=== PATIENT | male | born 1940 | race Caucasian/White ===

== ENCOUNTER 2016-08-22 11:20 | Inpatient (IN) | payer MEDICARE ==
[2016-08-22] VITALS (7 sets, daily range): BP systolic 128–151; BP diastolic 63–89; PULSE 59–78; RESP 17–18; TEMP 98; O2SAT 92–99
[~2016-08-22] VITALS: Ht 160 cm; Wt 52.8 kg
[~2016-08-22 11:20] MED LIST: ALBU1AER INH; BACT800T5 PO; FLON0.053; GABA100C4 PO; SYMB160A INH; XANA0.5T PO
[2016-08-22] MEDS ORDERED: SODIUM CHLORIDE 0.9% FLUSH 5 ML FLUSH IVF PRN (11:45)
[2016-08-22 11:58] LABS: BLOOD GAS BASE EXCESS -1.1 mmol/L (-2-2); BLOOD GAS CARBOXYHEMOGLOBIN 1.8 % (0-4); BLOOD GAS HCO3 23 mmol/L (22-26); BLOOD GAS O2 HGB SATURATION 93 % (90-100); BLOOD GAS OXYGEN CONTENT 15.3 Vol % (12.0-20.0); BLOOD GAS PCO2 38 mmHg (38-42); BLOOD GAS PO2 82 mmHG (61-120); BLOOD GAS TOTAL HGB 11.7 G/DL (12.0-16.0); CRITICAL VALUE NO; FIO2 21 %; OXYGEN DEVICE ROOM AIR; TEMP CORR TO 98.6
[2016-08-22 11:59] LABS: DRAW SITE RT RADIAL; NUMBER OF ARTERIAL PUNCTURES 1; STAT YES
--- NOTE | 2016-08-22 12:04 | PD ---
HPI Chief Complaint: Psychiatric Symptoms Time Seen by Provider: 11:38 Travel History International Travel<30 days: No Contact w/Intl Traveler<30days: No Traveled to known affect area: No History of Present Illness HPI 76-year-old male with PMH of BPH and chronic back pain presents to the ED under [facility] via EMS for evaluation after being found with a hose from his car tailpipe into the trunk of his car. It is unknown how long he was in the car before being found. Patient also endorses taking 6 and 10 Xanax, unknown strength today. Patient states that he has been unable to sleep and this is the reason why he attempted to end his life. He states that he was taking "a generic sleeping pill" prescribed by his doctor at [place]. He states that this medication was "alprazolam." On presentation he denies headache, dizziness, vision changes, chest pain, palpitations, shortness of breath, cough, abdominal pain, nausea, vomiting, weakness of the extremities. He denies chronic health problems, takes no daily medications. NKDA. PFSH Past Medical History Diminished Hearing: No Musculoskeletal: Yes (MULTIPLE VERTEBRAL FRACTURES) Immunizations Current: No Tetanus Vaccination: Unknown Influenza Vaccination: No Past Surgical History Genitourinary Surgery: Yes (ENLARGED PROSTATE) Social History Alcohol Use: No Tobacco Use: No Substance Use: No Allergies-Medications (Allergen,Severity, Reaction): Coded Allergies: No Known Allergies (Verified , 05/01/16) Reported Meds & Prescriptions Reported Meds & Active Scripts Active Gabapentin 100 Mg Cap 100 Mg PO Q8HR 10 Days Bactrim Ds1 Tab 1 Tab Tab 1 Tab PO BID 7 Days Reported Z.0.albuterol8.5hfa 8.5 Gm Aero 0 INH UNKNOWN DOSE Z.0.flonase0.05 % 0.05 % Naspr 1 Spr NA DAILY 1 SPRAY EACH NOSTRIL Z.0.symbicort 160/4. 160 Mcg/4.5 Mcg Aer 2 Puff INH BID * SHAKE WELL BEFORE USE * Z.0.xanax 0.5 Mg T0. 0.5 Mg Tab 0.5 Mg PO HSPRN Review of Systems Except as stated in HPI: all other systems reviewed are Neg Physical Exam Narrative GENERAL: Well-nourished, well-developed, somewhat altered, but alert white male , oriented 5 in no acute distress., SKIN: Warm and dry. HEAD: Normocephalic. EYES: No scleral icterus. No injection or drainage. Pupils 2-3 mm and reactive bilaterally. NECK: Supple, trachea midline. No JVD or lymphadenopathy. CARDIOVASCULAR: Regular rate and rhythm without murmurs, gallops, or rubs. 2+ DP and radial pulses bilaterally. RESPIRATORY: Breath sounds clear and equal bilaterally. No accessory muscle use. GASTROINTESTINAL: Abdomen soft, non-tender, nondistended. Active bowel sounds. MUSCULOSKELETAL: No cyanosis, or edema. NEUROLOGICAL: Awake and alert. Cranial nerves II through XII intact. Motor and sensory grossly within normal limits. 5/5 muscle strength in all muscle groups. Normal speech. BACK: Nontender without obvious deformity. No CVA tenderness. Data Data Last Documented VS Vital Signs Date Time Temp Pulse Resp B/P Pulse Ox O2 Delivery O2 Flow Rate FiO2 08/22/16 11:37 59 18 144/63 98 Nasal Cannula 3 08/22/16 11:26 98.0 Orders Complete Blood Count With Diff (08/22/16 11:31) Comprehensive Metabolic Panel (08/22/16 11:31) Act Partial Throm Time (Ptt) (08/22/16 11:31) Prothrombin Time / Inr (Pt) (08/22/16 11:31) Magnesium (Mg) (08/22/16 11:31) Ckmb (Isoenzyme) Profile (08/22/16 11:31) Troponin I (08/22/16 11:31) Urinalysis - C+S If Indicated (08/22/16 11:31) Iv Access Insert/Monitor (08/22/16 11:31) Electrocardiogram (08/22/16 11:31) Ecg Monitoring (08/22/16 11:31) Oximetry (08/22/16 11:31) Oxygen Administration (08/22/16 11:31) Chest, Single Ap (08/22/16 11:31) Sodium Chloride 0.9% Flush (Ns Flush) (08/22/16 11:45) Drug Screen, Random Urine (08/22/16 11:31) Alcohol (Ethanol) (08/22/16 11:31) Salicylates (Aspirin) (08/22/16 11:31) Tylenol (Acetaminophen) (08/22/16 11:31) Arterial Blood Gas (Abg) (08/22/16 11:34) Psych Screen (08/22/16 12:11) CKMB (08/22/16 11:54) CKMB% (08/22/16 11:54) Sodium Chlor 0.9% 1000 Ml Inj (Ns 1000 M (08/22/16 13:15) Labs Laboratory Tests Test 08/22/16 08/22/16 08/22/16 11:48 11:54 13:25 Blood Gas Puncture Site RT RADIAL Blood Gas Patient Temperature 98.6 Blood Gas HCO3 23 mmol/L Blood Gas Base Excess -1.1 mmol/L Blood Gas Oxygen Saturation 93 % Arterial Blood pH 7.40 Arterial Blood Partial 38 mmHg Pressure CO2 Arterial Blood Partial 82 mmHG Pressure O2 Arterial Blood Oxygen Content 15.3 Vol % Arterial Blood 1.8 % Carboxyhemoglobin Arterial Blood Methemoglobin 2.0 % Blood Gas Hemoglobin 11.7 G/DL Oxygen Delivery Device ROOM AIR Blood Gas Inspired Oxygen 21 % White Blood Count 5.9 TH/MM3 Red Blood Count 3.65 MIL/MM3 Hemoglobin 11.4 GM/DL Hematocrit 34.3 % Mean Corpuscular Volume 94.0 FL Mean Corpuscular Hemoglobin 31.3 PG Mean Corpuscular Hemoglobin 33.3 % Concent Red Cell Distribution Width 13.0 % Platelet Count 240 TH/MM3 Mean Platelet Volume 7.2 FL Neutrophils (%) (Auto) 65.9 % Lymphocytes (%) (Auto) 20.9 % Monocytes (%) (Auto) 8.9 % Eosinophils (%) (Auto) 3.9 % Basophils (%) (Auto) 0.4 % Neutrophils # (Auto) 3.9 TH/MM3 Lymphocytes # (Auto) 1.2 TH/MM3 Monocytes # (Auto) 0.5 TH/MM3 Eosinophils # (Auto) 0.2 TH/MM3 Basophils # (Auto) 0.0 TH/MM3 CBC Comment DIFF FINAL Differential Comment Prothrombin Time 11.3 SEC Prothromb Time International 1.0 RATIO Ratio Activated Partial 28.2 SEC Thromboplast Time Sodium Level 134 MEQ/L Potassium Level 4.5 MEQ/L Chloride Level 101 MEQ/L Carbon Dioxide Level 25.5 MEQ/L Anion Gap 8 MEQ/L Blood Urea Nitrogen 12 MG/DL Creatinine 0.95 MG/DL Estimat Glomerular Filtration 77 ML/MIN Rate Random Glucose 81 MG/DL Calcium Level 8.4 MG/DL Magnesium Level 1.9 MG/DL Total Bilirubin 0.7 MG/DL Aspartate Amino Transf 21 U/L (AST/SGOT) Alanine Aminotransferase 15 U/L (ALT/SGPT) Alkaline Phosphatase 39 U/L Total Creatine Kinase 116 U/L Creatine Kinase MB 1.0 NG/ML Troponin I LESS THAN 0.02 NG/ML Total Protein 6.2 GM/DL Albumin 3.4 GM/DL Salicylates Level LESS THAN 1.7 MG/DL Acetaminophen Level 8.2 MCG/ML Ethyl Alcohol Level LESS THAN 3 MG/DL Urine Color LIGHT-YELLOW Urine Turbidity CLEAR Urine pH 6.0 Urine Specific [place] 1.007 Urine Protein NEG mg/dL Urine Glucose (UA) NEG mg/dL Urine Ketones NEG mg/dL Urine Occult Blood NEG Urine Nitrite NEG Urine Bilirubin NEG Urine Urobilinogen LESS THAN 2.0 MG/DL Urine Leukocyte Esterase NEG Urine RBC LESS THAN 1 /hpf Urine WBC LESS THAN 1 /hpf Urine Mucus FEW /lpf Microscopic Urinalysis Comment CULT NOT INDICATED Urine Opiates Screen NEG Urine Barbiturates Screen NEG Urine Amphetamines Screen NEG Urine Benzodiazepines Screen POS Urine Cocaine Screen NEG Urine Cannabinoids Screen NEG MDM Medical Decision Making Medical Screen Exam Complete: Yes Emergency Medical Condition: Yes Interpretation(s) EKG rate 58, sinus rhythm. PA interval 168, QRS 114, QTc 416. No ST elevations or depressions. Reviewed by Dr. Ferreira. Differential Diagnosis carbon monoxide poisoning versus drug overdose versus electrolyte abnormality versus metabolic acidosis versus dehydration versus other Narrative Course 76-year-old male with PMH of BPH and chronic back pain presents to the ED under [facility] via EMS for evaluation after being found with a hose from his car tailpipe into the trunk of his car. It is unknown how long he was in the car before being found. Patient also endorses taking 6 -10 Xanax, unknown strength today. Patient states that he has been unable to sleep and this is the reason why he attempted to end his life. He states that he was taking "a generic sleeping pill" prescribed by his doctor in [place]. He states that this medication was "alprazolam." On presentation he denies headache, dizziness, vision changes, chest pain, palpitations, shortness of breath, cough, abdominal pain, nausea, vomiting, weakness of the extremities. Vitals reviewed. Physical exam reveals a groggy but alert and oriented white male in no acute distress. Chest is clear to auscultation bilaterally. Abdomen soft nontender. No focal neural deficits. IV was established. Patient was placed on continuous monitoring. He was administered a liter of normal saline. CBC: WBC 5.9. Hemoglobin 11.4. CMP: No concerning electrolyte abnormalities Cardiac enzymes: Negative UA: No culture indicated Chest x-ray: No acute disease per radiology read. EKG as above ABG: O2 sat 93%, pH 7.4. Carboxyhemoglobin 1.8. Tox screen: Acetaminophen 8.2, salicylates < 1.7, positive for benzodiazepines. On recheck the patient is sitting upright in the bed, alert, oriented, requesting to go home. He denies suicidal or homicidal ideation. I discussed the patient and plan of care with Dr. Ferreira. We can continue to monitor the patient in the psych unit as needed. The patient is medically clear for psychiatric evaluation. Please see their notes for disposition. 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 She states that he has Corey Chorea. He cared for his mother in the last 5 years of her life. The patient is afraid and depressed that his life will end similarly. She also states that he has been taking Xanax "for years." His doctor just prescribed trazodone. The patient states that he took one dose and "felt loopy" and doesn't want to take an antidepressant. He repeatedly asks to be discharged so that he can "finish what he started." He tells me that he got the idea for suicide by asphyxiation from a friend who [place] himself [place] by similar means. Due to his active suicidality, a call was placed to expedite the patient to the psychiatric pod. Diagnosis Primary Impression: Intentional overdose of drug in tablet form Additional Impressions: Suicide attempt by carbon monoxide poisoning Qualified Code: T58.92XA - Suicide attempt by carbon monoxide poisoning, initial encounter Medical clearance for psychiatric admission Sandi Garcia Aug 22, 2016 12:04
[2016-08-22 12:06] LABS: AUTOMATED NEUTROPHIL # 3.9 TH/MM3 (1.8-7.7); BASOPHIL % 0.4 % (0.0-2.0); EOSINOPHIL # 0.2 TH/MM3 (0-0.4); EOSINOPHIL % 3.9 % (0.0-4.0); HEMATOCRIT 34.3 % (39.0-51.0); HEMO FLAGS DIFF FINAL; LYMPH % 20.9 % (9.0-44.0); LYMPHOCYTE # 1.2 TH/MM3 (1.0-4.8); MEAN CORPUSCULAR HEMOGLOBIN 31.3 PG (27.0-34.0); MEAN CORPUSCULAR HGB CONC 33.3 % (32.0-36.0); MONO % 8.9 % (0.0-8.0); NEUT % 65.9 % (16.0-70.0); PLATELET COUNT 240 TH/MM3 (150-450); RED BLOOD COUNT 3.65 MIL/MM3 (4.50-5.90); WHITE BLOOD COUNT 5.9 TH/MM3 (4.0-11.0)
[2016-08-22 12:17] LABS: APTT (PATIENT) 28.2 SEC (24.3-30.1); PROTHROMBIN TIME - PATIENT 11.3 SEC (9.8-11.6)
[2016-08-22 12:31] LABS: ACETAMINOPHEN 8.2 MCG/ML (10.0-30.0); ALKALINE PHOSPHATASE 39 U/L (45-117); ALT (GPT) 15 U/L (12-78); ANION GAP 8 MEQ/L (5-15); AST (GOT) 21 U/L (15-37); BICARBONATE 25.5 MEQ/L (21.0-32.0); BLOOD UREA NITROGEN 12 MG/DL (7-18); CHLORIDE 101 MEQ/L (98-107); CREATINE KINASE 116 U/L (39-308); GLOMERULAR FILTRATION RATE 77 ML/MIN (>89); MAGNESIUM 1.9 MG/DL (1.5-2.5); POTASSIUM 4.5 MEQ/L (3.5-5.1); SODIUM (NA) 134 MEQ/L (136-145); TOTAL BILIRUBIN ADULT 0.7 MG/DL (0.2-1.0)
--- NOTE | 2016-08-22 12:51 | RADRPT ---
EXAM DATE/TIME: 08/22/2016 11:34 [facility] COMPARISON: No previous studies available for comparison. INDICATIONS : Chest pains with shortness of breath. MEDICAL HISTORY : None. SURGICAL HISTORY : None. ENCOUNTER: Initial ACUITY: 1 day PAIN SCORE: 0/10 LOCATION: Bilateral chest FINDINGS: A single view of the chest demonstrates the lungs to be symmetrically aerated without evidence of mas s, infiltrate or effusion. The cardiomediastinal contours are unremarkable. Osseous structures are intact. CONCLUSION: No acute disease. Lit August MD FACR on August 22, 2016 at 12:49 Board Certified Radiologist. This report was verified electronically.
[2016-08-22] MEDS ORDERED: SODIUM CHLOR 0.9% 1000 ML INJ 1,000 ML IV ONE (13:15)
[2016-08-22 13:38] LABS: BLOOD, URINE NEG (NEG); COMMENT (UR) CULT NOT INDICATED; CULTURE IF INDICATED CULT NOT INDICATED; GLUCOSE,URINE NEG (NEG); KETONE, URINE NEG (NEG); MUCUS URINE FEW /lpf (OCC); NITRITE,URINE NEG (NEG); URINE COLOR LIGHT-YELLOW (YELLW/STRAW)
[2016-08-22 13:44] LABS: AMPHETAMINE, URINE NEG (NEG); BARBITURATES, URINE NEG (NEG); COCAINE, URINE NEG (NEG)
--- NOTE | 2016-08-22 14:56 | PD ---
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 Patient states that he's been having insomnia ever since moving here from [place]. He states she's been on multiple medications including Xanax and Ambien. He states that despite those medications he still is still having difficulty sleeping. The patient states his mother had the same condition and he will watch her diet over a [address] [place] [address] [facility]. He states he did not wish to suffer like she did. The patient reportedly connected his exhaust into a pipe been fed through his trunk. Reportedly his girlfriend called police. Data Data Last Documented VS Vital Signs Date Time Temp Pulse Resp B/P Pulse Ox O2 Delivery O2 Flow Rate FiO2 08/22/16 11:37 59 18 144/63 98 Nasal Cannula 3 08/22/16 11:26 98.0 Orders Complete Blood Count With Diff (08/22/16 11:31) Comprehensive Metabolic Panel (08/22/16 11:31) Act Partial Throm Time (Ptt) (08/22/16 11:31) Prothrombin Time / Inr (Pt) (08/22/16 11:31) Magnesium (Mg) (08/22/16 11:31) Ckmb (Isoenzyme) Profile (08/22/16 11:31) Troponin I (08/22/16 11:31) Urinalysis - C+S If Indicated (08/22/16 11:31) Iv Access Insert/Monitor (08/22/16 11:31) Electrocardiogram (08/22/16 11:31) Ecg Monitoring (08/22/16 11:31) Oximetry (08/22/16 11:31) Oxygen Administration (08/22/16 11:31) Chest, Single Ap (08/22/16 11:31) Sodium Chloride 0.9% Flush (Ns Flush) (08/22/16 11:45) Drug Screen, Random Urine (08/22/16 11:31) Alcohol (Ethanol) (08/22/16 11:31) Salicylates (Aspirin) (08/22/16 11:31) Tylenol (Acetaminophen) (08/22/16 11:31) Arterial Blood Gas (Abg) (08/22/16 11:34) Psych Screen (08/22/16 12:11) CKMB (08/22/16 11:54) CKMB% (08/22/16 11:54) Sodium Chlor 0.9% 1000 Ml Inj (Ns 1000 M (08/22/16 13:15) Labs Laboratory Tests Test 08/22/16 08/22/16 08/22/16 11:48 11:54 13:25 Blood Gas Puncture Site RT RADIAL Blood Gas Patient Temperature 98.6 Blood Gas HCO3 23 mmol/L Blood Gas Base Excess -1.1 mmol/L Blood Gas Oxygen Saturation 93 % Arterial Blood pH 7.40 Arterial Blood Partial 38 mmHg Pressure CO2 Arterial Blood Partial 82 mmHG Pressure O2 Arterial Blood Oxygen Content 15.3 Vol % Arterial Blood 1.8 % Carboxyhemoglobin Arterial Blood Methemoglobin 2.0 % Blood Gas Hemoglobin 11.7 G/DL Oxygen Delivery Device ROOM AIR Blood Gas Inspired Oxygen 21 % White Blood Count 5.9 TH/MM3 Red Blood Count 3.65 MIL/MM3 Hemoglobin 11.4 GM/DL Hematocrit 34.3 % Mean Corpuscular Volume 94.0 FL Mean Corpuscular Hemoglobin 31.3 PG Mean Corpuscular Hemoglobin 33.3 % Concent Red Cell Distribution Width 13.0 % Platelet Count 240 TH/MM3 Mean Platelet Volume 7.2 FL Neutrophils (%) (Auto) 65.9 % Lymphocytes (%) (Auto) 20.9 % Monocytes (%) (Auto) 8.9 % Eosinophils (%) (Auto) 3.9 % Basophils (%) (Auto) 0.4 % Neutrophils # (Auto) 3.9 TH/MM3 Lymphocytes # (Auto) 1.2 TH/MM3 Monocytes # (Auto) 0.5 TH/MM3 Eosinophils # (Auto) 0.2 TH/MM3 Basophils # (Auto) 0.0 TH/MM3 CBC Comment DIFF FINAL Differential Comment Prothrombin Time 11.3 SEC Prothromb Time International 1.0 RATIO Ratio Activated Partial 28.2 SEC Thromboplast Time Sodium Level 134 MEQ/L Potassium Level 4.5 MEQ/L Chloride Level 101 MEQ/L Carbon Dioxide Level 25.5 MEQ/L Anion Gap 8 MEQ/L Blood Urea Nitrogen 12 MG/DL Creatinine 0.95 MG/DL Estimat Glomerular Filtration 77 ML/MIN Rate Random Glucose 81 MG/DL Calcium Level 8.4 MG/DL Magnesium Level 1.9 MG/DL Total Bilirubin 0.7 MG/DL Aspartate Amino Transf 21 U/L (AST/SGOT) Alanine Aminotransferase 15 U/L (ALT/SGPT) Alkaline Phosphatase 39 U/L Total Creatine Kinase 116 U/L Creatine Kinase MB 1.0 NG/ML Troponin I LESS THAN 0.02 NG/ML Total Protein 6.2 GM/DL Albumin 3.4 GM/DL Salicylates Level LESS THAN 1.7 MG/DL Acetaminophen Level 8.2 MCG/ML Ethyl Alcohol Level LESS THAN 3 MG/DL Urine Color LIGHT-YELLOW Urine Turbidity CLEAR Urine pH 6.0 Urine Specific [place] 1.007 Urine Protein NEG mg/dL Urine Glucose (UA) NEG mg/dL Urine Ketones NEG mg/dL Urine Occult Blood NEG Urine Nitrite NEG Urine Bilirubin NEG Urine Urobilinogen LESS THAN 2.0 MG/DL Urine Leukocyte Esterase NEG Urine RBC LESS THAN 1 /hpf Urine WBC LESS THAN 1 /hpf Urine Mucus FEW /lpf Microscopic Urinalysis Comment CULT NOT INDICATED Urine Opiates Screen NEG Urine Barbiturates Screen NEG Urine Amphetamines Screen NEG Urine Benzodiazepines Screen POS Urine Cocaine Screen NEG Urine Cannabinoids Screen NEG [facility] Medical Record Reviewed: Yes Supervised Visit with SUMA: Yes Differential Diagnosis Abdomen outside poisoning versus medication overdose versus electrolyte abnormality Narrative Course 76-year-old gentleman with history of Corey's chorea, presents today after he reportedly attempted suicide using carbon monoxide from this vehicle. The patient's blood gas shows a carboxyhemoglobin of 1.8. Initially, he reported he had taken up to 6 of his Xanax tablets. He was somewhat slurring of his speech however this is improved since he's been here. Urine tox is positive for benzodiazepines. The rest of his laboratory tests are within normal limits. He'll be medically cleared for psychiatric admission. I, Dr. Ferreira, have reviewed the advance practice practitioner's documentation and am in agreement, met with the patient face to face, made the diagnosis, and the medical decision making was done by me. *My assessment and Findings: Intentional overdose. Attempted suicide using carbon monoxide. Quitman's chorea by history. Medically cleared Diagnosis Primary Impression: Intentional overdose of drug in tablet form Additional Impressions: Suicide attempt by carbon monoxide poisoning Qualified Code: T58.92XA - Suicide attempt by carbon monoxide poisoning, initial encounter Medical clearance for psychiatric admission Victorino Ferreira MD Aug 22, 2016 14:56
--- NOTE | 2016-08-22 15:43 | PD ---
History of Present Illness Chief Complaint: Psychiatric Symptoms Time Seen by Provider: 15:00 Travel History International Travel<30 Days: No Contact w/Intl Traveler<30days: No Known affected area: No Legal Status Legal Status: Fox Act Fox Act Signed By: Mariajose Kolb History of Present Illness: History of Present Illness 76-year-old male with PMH of BPH, chronic back pain, anxiety disorder who presents to the ED under Fox Act via EMS. As per the BA report " Max was found in his vehicle with 2 plastic pipes taped to his exhaust pipes and the ran them through the trunk. He advised he had been unable to sleep and was trying to go to sleep. His girlfriend reported that she has caught him doing the same thing once before approximately 6 months ago. He also endorsed having taken 6 to 10 Xanax today. As per EMR review he has not had previous contact with [facility] psychiatric department. Current toxicology is positive for benzos only. Patient is seen at bedside in main ED. His girlfriend is at bedside and is present during evaluation. Patient is alert and oriented x 4. He is dressed in hospital attire and appears stated age. He is engaging. Speech is clear, slight slurred, goal directed. There is no hallucinations, delusions and no paranoia. Mood is angry, depressed and anxious. He is frustrated with not being able to sleep as well as frustrated with not being able to do the things he wants to do and enjoys including fishing. He perseverates on not being able to sleep due to not getting the medications that he has been taking for the past 15 years including Ambien and Xanax. It appears that since he moved here he has had difficulty finding a PCP who would prescribe these medications for him. His PCP RX Trazodone but he states that it has made him feel worse and has not helped with his sleep. He continues to endorse his desire to as " I am not able to do the things I enjoy". He minimizes his actions and doesn't' understand why he is being evaluated and why he needs to be in the hospital for further evaluation. [facility] Past Medical History Diminished Hearing: No Musculoskeletal: Yes (MULTIPLE VERTEBRAL FRACTURES) Immunizations Current: No Tetanus Vaccination: Unknown Influenza Vaccination: No Past Surgical History Genitourinary Surgery: Yes (ENLARGED PROSTATE) Psychiatric History Psychiatric History Hx Psychiatric Treatment: Has been tretaed by his PCP x 15 years with Trellx and Ambien. History of Inpatient Treatment: No Guns or firearms in home: No Social History Born in [place]. Has been living in [place] x 7 years. he lives with his girlfriend , Earlene Hodgson. He has been x " 3 - 4 times" and has " several children ". he does not elaborate on this. 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 Hx Alcohol Use: No Hx Tobacco Use: No Hx Substance Use: No Hx of Substance Use Treatment: No Family Psychiatric History Mother with dementia secondary to [place] disease. Allergies-Medications (Allergen,Severity, Reaction): Coded Allergies: No Known Allergies (Verified , 05/01/16) Reported Meds & Prescriptions Reported Meds & Active Scripts Active Gabapentin 100 Mg Cap 100 Mg PO Q8HR 10 Days Bactrim Ds1 Tab 1 Tab Tab 1 Tab PO BID 7 Days Reported Z.0.albuterol8.5hfa 8.5 Gm Aero 0 INH UNKNOWN DOSE Z.0.flonase0.05 % 0.05 % Naspr 1 Spr NA DAILY 1 SPRAY EACH NOSTRIL Z.0.symbicort 160/4. 160 Mcg/4.5 Mcg Aer 2 Puff INH BID * SHAKE WELL BEFORE USE * Z.0.xanax 0.5 Mg T0. 0.5 Mg Tab 0.5 Mg PO HSPRN Review of Systems Constitutional: COMPLAINS OF: Change in appetite Endocrine: DENIES: Heat/cold intolerance, Polydipsia, Polyuria, Polyphagia Eyes: COMPLAINS OF: Vision loss Ears, nose, mouth, throat: DENIES: Tinnitus, Hearing loss, Vertigo, Nasal discharge, Oral lesions, Throat pain, Hoarseness, Ear Pain, Running Nose, Epistaxis, Sinus Pain, Toothache, Odynophagia Respiratory: DENIES: Apneas, Cough, Snoring, Wheezing, Hemoptysis, Sputum production, Shortness of breath Cardiovascular: DENIES: Chest pain, Palpitations, Syncope, Dyspnea on Exertion , PND, Lower Extremity Edema, Orthopnea, Claudication Gastrointestinal: COMPLAINS OF: Abdominal pain, Anorexia Genitourinary: DENIES: Sexual dysfunction, Urinary frequency, Urinary incontinence, Urgency, Hematuria, Dysuria, Nocturia, Penile Discharge, Testicular Pain, Testicular Swelling Musculoskeletal: DENIES: Joint pain, Muscle aches, Stiffness, Joint Swelling, Back pain, Neck pain Integumentary: DENIES: Abnormal pigmentation, Nail changes, Pruritus, Rash Hematologic/lymphatic: DENIES: Bruising, Lymphadenopathy Immunologic/allergic: DENIES: Eczema, Urticaria Neurologic: COMPLAINS OF: Poor Balance Psychiatric: COMPLAINS OF: Anxiety, Depression, Suicidal Ideation Exam Alert: Yes [place]: Person (ox4) Mood: Angry, Anxious, Calm Affect: Other (variable) Speech: Clear, Logical Eye Contact: Normal Memory Intact: Comment (not impaired) Hallucinations: Other (denies) Delusions: No Suicidal: Ideation (endorses desire to and no reason for living) Homicidal: Ideation Insight/Judgement Poor. Poor. MDM Medical Decision Making Medical Record Reviewed: Yes Assessment/Plan 76 year old male under a BA after he was found in his car with the exhaust pipe vented inside the car. He also took between 6- 10 Xanax in an effort to go to sleep. He reports he is frustrated with not being able to sleep due to not being able to get Ambien prescribed. He also endorses feeling depressed due to physical decline and inability to do the things he has always enjoyed doing. At this time he will remain under a BA. It is my recommendation that he be admitted for further evaluation, medication adjustment as well as to maintain safety. Orders Complete Blood Count With Diff (08/22/16 11:31) Comprehensive Metabolic Panel (08/22/16 11:31) Act Partial Throm Time (Ptt) (08/22/16 11:31) Prothrombin Time / Inr (Pt) (08/22/16 11:31) Magnesium (Mg) (08/22/16 11:31) Ckmb (Isoenzyme) Profile (08/22/16 11:31) Troponin I (08/22/16 11:31) Urinalysis - C+S If Indicated (08/22/16 11:31) Iv Access Insert/Monitor (08/22/16 11:31) Electrocardiogram (08/22/16 11:31) Ecg Monitoring (08/22/16 11:31) Oximetry (08/22/16 11:31) Oxygen Administration (08/22/16 11:31) Chest, Single Ap (08/22/16 11:31) Sodium Chloride 0.9% Flush (Ns Flush) (08/22/16 11:45) Drug Screen, Random Urine (08/22/16 11:31) Alcohol (Ethanol) (08/22/16 11:31) Salicylates (Aspirin) (08/22/16 11:31) Tylenol (Acetaminophen) (08/22/16 11:31) Arterial Blood Gas (Abg) (08/22/16 11:34) Psych Screen (08/22/16 12:11) CKMB (08/22/16 11:54) CKMB% (08/22/16 11:54) Sodium Chlor 0.9% 1000 Ml Inj (Ns 1000 M (08/22/16 13:15) Results Vital Signs Date Time Temp Pulse Resp B/P Pulse Ox O2 Delivery O2 Flow Rate FiO2 08/22/16 11:37 59 18 144/63 98 Nasal Cannula 3 08/22/16 11:37 98 Nasal Cannula 3 08/22/16 11:26 98.0 74 18 141/89 92 Laboratory Tests Test 08/22/16 08/22/16 08/22/16 11:48 11:54 13:25 Blood Gas Puncture Site RT RADIAL Blood Gas Patient Temperature 98.6 Blood Gas HCO3 23 Blood Gas Base Excess -1.1 Blood Gas Oxygen Saturation 93 Arterial Blood pH 7.40 Arterial Blood Partial 38 Pressure CO2 Arterial Blood Partial 82 Pressure O2 Arterial Blood Oxygen Content 15.3 Arterial Blood 1.8 Carboxyhemoglobin Arterial Blood Methemoglobin 2.0 Blood Gas Hemoglobin 11.7 Oxygen Delivery Device ROOM AIR Blood Gas Inspired Oxygen 21 White Blood Count 5.9 Red Blood Count 3.65 Hemoglobin 11.4 Hematocrit 34.3 Mean Corpuscular Volume 94.0 Mean Corpuscular Hemoglobin 31.3 Mean Corpuscular Hemoglobin 33.3 Concent Red Cell Distribution Width 13.0 Platelet Count 240 Mean Platelet Volume 7.2 Neutrophils (%) (Auto) 65.9 Lymphocytes (%) (Auto) 20.9 Monocytes (%) (Auto) 8.9 Eosinophils (%) (Auto) 3.9 Basophils (%) (Auto) 0.4 Neutrophils # (Auto) 3.9 Lymphocytes # (Auto) 1.2 Monocytes # (Auto) 0.5 Eosinophils # (Auto) 0.2 Basophils # (Auto) 0.0 CBC Comment DIFF FINAL Differential Comment Prothrombin Time 11.3 Prothromb Time International 1.0 Ratio Activated Partial 28.2 Thromboplast Time Sodium Level 134 Potassium Level 4.5 Chloride Level 101 Carbon Dioxide Level 25.5 Anion Gap 8 Blood Urea Nitrogen 12 Creatinine 0.95 Estimat Glomerular Filtration 77 Rate Random Glucose 81 Calcium Level 8.4 Magnesium Level 1.9 Total Bilirubin 0.7 Aspartate Amino Transf 21 (AST/SGOT) Alanine Aminotransferase 15 (ALT/SGPT) Alkaline Phosphatase 39 Total Creatine Kinase 116 Creatine Kinase MB 1.0 Troponin I LESS THAN 0.02 Total Protein 6.2 Albumin 3.4 Salicylates Level LESS THAN 1.7 Acetaminophen Level 8.2 Ethyl Alcohol Level LESS THAN 3 Urine Color LIGHT-YELLOW Urine Turbidity CLEAR Urine pH 6.0 Urine Specific [place] 1.007 Urine Protein NEG Urine Glucose (UA) NEG Urine Ketones NEG Urine Occult Blood NEG Urine Nitrite NEG Urine Bilirubin NEG Urine Urobilinogen LESS THAN 2.0 Urine Leukocyte Esterase NEG Urine RBC LESS THAN 1 Urine WBC LESS THAN 1 Urine Mucus FEW Microscopic Urinalysis Comment CULT NOT INDICATED Urine Opiates Screen NEG Urine Barbiturates Screen NEG Urine Amphetamines Screen NEG Urine Benzodiazepines Screen POS Urine Cocaine Screen NEG Urine Cannabinoids Screen NEG Diagnosis Primary Impression: Adjustment disorder Additional Impressions: Intentional overdose of drug in tablet form Suicide attempt by carbon monoxide poisoning Admitting Information Admitting Physician Requests: Admit (Dr. Peña) Psychiatrically Cleared: Yes Problem Qualifiers Primary Impression: Adjustment disorder Qualified Code: F43.23 - Adjustment disorder with mixed anxiety and depressed mood Additional Impressions: Suicide attempt by carbon monoxide poisoning Qualified Code: T58.92XA - Suicide attempt by carbon monoxide poisoning, initial encounter Carmen Solis Aug 22, 2016 15:43
[2016-08-22] MEDS ORDERED: ALUMINUM/MAGNESIUM/SIMETH 30 ML CUP PO PRN (16:30)
[2016-08-22] MEDS ORDERED: MAGNESIUM HYDROXIDE SUSP 30 ML CUP PO PRN (16:30)
[2016-08-22] MEDS ORDERED: ACETAMINOPHEN 325 MG TAB PO PRN (16:30)
[2016-08-22] MEDS: BUDESONIDE-FORMOTEROL 160/4.5 MCG INHALER INH SCH (21:00)
[2016-08-22] MEDS: GABAPENTIN 100 MG CAP PO SCH (22:00)
[2016-08-23 05:57] VITALS: BP 124/69; PULSE 69; RESP 18; TEMP 98.2; O2SAT 96
[2016-08-23] MEDS: GABAPENTIN 100 MG CAP PO SCH ×3 (06:18→20:37)
[2016-08-23 08:29] LABS: ANION GAP 9 MEQ/L (5-15); BICARBONATE 25.9 MEQ/L (21.0-32.0); BLOOD UREA NITROGEN 16 MG/DL (7-18); CHLORIDE 102 MEQ/L (98-107); GLOMERULAR FILTRATION RATE 75 ML/MIN (>89); SODIUM (NA) 137 MEQ/L (136-145)
[2016-08-23 08:40] LABS: LDL CHOLESTEROL 123 MG/DL (0-99)
[2016-08-23] MEDS: FLUTICASONE PROPIONATE 50 MCG/ACT 16 GM NASAL SPRAY SCH (09:00)
[2016-08-23] MEDS: BUDESONIDE-FORMOTEROL 160/4.5 MCG INHALER INH SCH ×2 (09:00→20:38)
--- NOTE | 2016-08-23 10:41 | HHI.HP ---
Provisional Diagnosis Admission Date Aug 22, 2016 at 16:33 [place] I. Major depression, recurrent type, severe, without psychotic features. Certification of Person's Competence To Provide Express and Informed Consent I have personally examined Damaso Woodson , a person being served at [facility] on, Aug 23, 2016 10:32. Express and informed consent means consent voluntarily given in writing, by a competent person, after sufficient explanation and disclosure of the subject matter involved to enable the person to make a knowing and willful decision without any element of force, fraud, deceit, duress, or other form of constraint or coercion. This person is 18 years of age or older, is not now known to be incompetent to consent to treatment with a guardian advocate, and does not have a health care surrogate or proxy currently making medical treatment decisions. I have found this person to be one of the following: [x] Competent to provide express and informed consent, as defined above, for voluntary admission to this facility and is competent to provide express and informed consent for treatment. He/she has the consistent capacity to make well reasoned, willful, and knowing decisions concerning his or her medical or mental health treatment. The person fully and consistently understands the purpose of the admission for examination/placement and is fully capable of personally exercising all rights assured [place] Incompetent to provide express and informed consent to voluntary admission, and this is incompetent to provide express and informed consent to treatment. The person must be transferred to involuntary status and a petition for a guardian advocate filed with the Circuit Court. [] Refusing to provide express and informed consent to voluntary admission but is competent to provide express and informed consent for treatment. The person must be discharged or transferred to involuntary status. Form shall be completed within 24 hours of a person's arrival at the receiving facility and filed in the clinical record of each person: 1. Admitted on a voluntary basis 2. Permitted to provide express and informed consent to his/her own treatment 3. Allowed to transfer from involuntary to voluntary status 4. Prior to permitting a person to consent to his or her own treatment after having been previously found incompetent to consent to treatment. History of Present Illness Capacity: Has Capacity HPI This is a 76-year-old male who was admitted yesterday after attempting suicide. Apparently he put some type of plastic hose from his tailpipe into the trunk of his car in an effort to kill himself. He was discovered by his girlfriend of 7 years, who called the police. He was Fox acted as a result. Upon interview, the patient reports he was and continues to be suicidal. He ruminates about his inability to sleep. He states he has been treated with Xanax and Ambien for 15 years while residing in [place] and since moving to [place] , he has not received these medicines and has been unable to sleep. As a result of this and not being able to do what he wants, he claims there is no point in living. He also describes chronic back pain and indeed has a history of 4 vertebral fractures. Symptoms of depression include depressed mood, anhedonia, diminished energy, low motivation, profound sleep disturbance, suicidal ideation, social withdrawal and irritability. Review of Systems ROS Limitations: Clinical Condition Except as stated in HPI: all other systems reviewed are Neg Musculoskeletal: COMPLAINS OF: Back pain Past Psych History Psychological trauma history None reported. Violence risk - others (6 mos) None observed. Violence risk - self (6 mos) Significant risk of harm to self. Substance Abuse History Drugs/Alcohol past 12 months Denies abuse. Past Family Social History Coded Allergies: No Known Allergies (Verified , 05/01/16) Active Scripts Gabapentin 100 Mg [id number] Mg PO Q8HR 10 Days Ref 0 Prov:Ron Wlilis MD 05/01/16 Sulfamethoxazole-Trimethoprim DS (Bactrim DS)1 Tab Tab1 Tab PO BID 7 Days Prov:Ron Willis MD 12/21/14 Reported Medications Albuterol Sulfate (Proair Hfa)8.5 Gm Aero Inh UNKNOWN DOSE 12/21/14 Fluticasone Propionate (Flonase)0.05 % Naspr1 Spr NA DAILY 1 SPRAY EACH NOSTRIL 12/21/14 Budesonide-Formoterol Fumarate (Symbicort)160 Mcg/4.5 Mcg Aer2 Puff INH BID #1 BOX * SHAKE WELL BEFORE USE * 12/21/14 Alprazolam (Xanax 0.5 mg)0.5 Mg Tab0.5 Mg PO HSPRN 06/08/12 Current Medications Medications (Trade) Dose Ordered Sig/Byron Route Start Time Stop Time Status Last Admin (NS Flush) 2 ml UNSCH PRN IVF 08/22/16 11:45 (Tylenol) 650 mg Q4H PRN PO 08/22/16 16:30 08/23/16 02:02 (Milk Of Magnesia Liq) 30 ml DAILY PRN PO 08/22/16 16:30 (Mag-Al Plus Susp Liq) 30 ml Q6H PRN PO 08/22/16 16:30 (Symbicort 160-4.5 Inh) 2 puff BID INH 08/22/16 21:00 (Flonase Rehan Spr) 1 spray DAILY NA 08/23/16 09:00 (Neurontin) 100 mg Q8HR PO 08/22/16 22:00 08/23/16 06:18 Family History Significant for depression and G[place]'s disease Social History Family members who are living and reside in [place]. Patient moved to [place] within the last year. Has been treated by Dr. Pieter Montelongo and tried on trazodone. Patient is retired. He has the same girlfriend for the last 7 years. He has no children. He has very little family support. No history of alcohol or drug abuse reported. Patient's Strengths (min. 2) Patient is both verbal and resilient. Physical Exam GENERAL: SKIN: Warm and dry. HEAD: Normocephalic. EYES: No scleral icterus. No injection or drainage. NECK: Supple, trachea midline. No JVD or lymphadenopathy. CARDIOVASCULAR: Regular rate and rhythm without murmurs, gallops, or rubs. RESPIRATORY: Breath sounds equal bilaterally. No accessory muscle use. GASTROINTESTINAL: Abdomen soft, non-tender, nondistended. MUSCULOSKELETAL: No cyanosis, or edema. BACK: Nontender without obvious deformity. No CVA tenderness. Vital Signs Vital Signs Date Time Temp Pulse Resp B/P Pulse Ox O2 Delivery O2 Flow Rate FiO2 08/23/16 05:57 98.2 69 18 124/69 96 08/22/16 15:45 Room Air 08/22/16 11:37 3 I/O 08/22/16 08/22/16 08/23/16 08:00 16:00 00:00 Output Total 250 ml Balance -250 ml Mental Status Examination Speech: Unremarkable Orientation: x3 Memory: Unremarkable Thought Process: Organized, Goal Directed Thought Content: Unremarkable Hallucination Type: None Attention and Concentration: Good Suicidal Ideation: Yes Previous Suicide Attempts: Yes Homicidal Ideation: No Previous Homicide Attempts: No Insight: Fair Judgement: Unrealistic Affect: Sad Affect if Inappropriate: Blunt Mood: Sad Motor Activity: Normal gait Assessment & Plan Problem List: (1) Chronic major depressive disorder ICD Code: F32.9 Assessment & Plan Estimated LOS: days due to the patient's 15 year history of taking Ambien and Xanax, this physician feels it is unlikely and unwise to completely withdraw him from these medicines at this time. His quality of life has gone down substantially and as long as these medicines can be managed appropriately, they will not cause deleterious effects to his system. Therefore he will be prescribed low doses of each. In addition, we will observe and evaluate him for depression and the need for antidepressant medication. He will remain on a Fox act for this time. And be evaluated for voluntary status. It is anticipated he'll be in the hospital for 5-7 days. Discharge Planning It is hoped he will be able to return home and receive follow up treatment on an outpatient basis. Rafael Munoz MD Aug 23, 2016 10:41
--- NOTE | 2016-08-23 13:29 | PD.CONS ---
[facility] By [facility] Reason for Consult Arthritis management Primary Care Physician Ron Willis MD Diagnoses: History of Present Illness This a 76-year-old male with past medical history which includes BPH status post TURP 2013, reported history of vertebral fracture, chronic back pain anxiety and depression. Patient is currently inpatient psychiatric center for suicide attempt we have been consulted for assistance with management of arthritis pain. Patient reports he has back pain which is chronic. Patient reports he has not been taking his pain medications as being in the psychiatric center. Patient reports he takes extra strength Tylenol and some other prescription medication which he does not recall the name. As nothing recorded on his home med reconciliation was first narcotic pain medication. Patient is able to ambulate without difficulties patient reports he is able to pass urine and stool without difficulties has no focal numbness or paresthesia. Patient appears to be in no acute distress denies shortness of breath cough congestion chest pain nausea vomiting diarrhea constipation fevers or chills Review of Systems Except as stated in HPI: all other systems reviewed are Neg Past Family Social History Allergies: Coded Allergies: No Known Allergies (Verified , 05/01/16) Past Medical History BPH status post TURP 2013, reported history of vertebral compression fracture, chronic back pain anxiety and depression. Past Surgical History TURP Reported Medications Gabapentin 100 Mg Cap 100 Mg PO Q8HR 10 Days Z.0.xanax 0.5 Mg T0. 0.5 Mg Tab 0.5 Mg PO HSPRN Active Ordered Medications Current Medications Medications (Trade) Dose Ordered Sig/Byron Route Start Time Stop Time Status Last Admin (NS Flush) 2 ml UNSCH PRN IVF 08/22/16 11:45 (Tylenol) 650 mg Q4H PRN PO 08/22/16 16:30 08/23/16 02:02 (Milk Of Magnesia Liq) 30 ml DAILY PRN PO 08/22/16 16:30 (Mag-Al Plus Susp Liq) 30 ml Q6H PRN PO 08/22/16 16:30 (Symbicort 160-4.5 Inh) 2 puff BID INH 08/22/16 21:00 (Flonase Rehan Spr) 1 spray DAILY NA 08/23/16 09:00 (Neurontin) 100 mg Q8HR PO 08/22/16 22:00 08/23/16 06:18 (Xanax) 0.25 mg Q6H PRN PO 08/23/16 10:45 (Ambien) 5 mg HS PRN PO 08/23/16 10:45 (Ultram) 50 mg Q12H PRN PO 08/23/16 13:30 Family History Mother secondary to Corey's disease Social History Denies EtOH use tobacco use or illicit drug use Physical Exam Vital Signs Vital Signs Date Time Temp Pulse Resp B/P Pulse Ox O2 Delivery O2 Flow Rate FiO2 08/23/16 05:57 98.2 69 18 124/69 96 08/22/16 18:15 98.0 70 17 128/70 96 08/22/16 15:45 67 18 151/79 98 Room Air 08/22/16 14:35 67 18 146/79 98 Room Air 08/22/16 13:30 78 18 147/76 99 Room Air Physical Exam GENERAL: This is a well-nourished, well-developed patient, in no apparent distress. SKIN: No rashes, ecchymoses or lesions. Cool and dry. HEAD: Atraumatic. Normocephalic. No temporal or scalp tenderness. EYES: Extraocular motions intact. No scleral icterus. No injection or drainage. CARDIOVASCULAR: Regular rate and rhythm without murmurs, gallops, or rubs. RESPIRATORY: Clear to auscultation. Breath sounds equal bilaterally. No wheezes , rales, or rhonchi. GASTROINTESTINAL: Abdomen soft, non-tender, nondistended. No guarding. MUSCULOSKELETAL: Extremities without clubbing, cyanosis, or edema. No joint tenderness, effusion, or edema noted. No calf tenderness. Negative Homans sign bilaterally. NEUROLOGICAL: Awake and alert. No focal deficits. Motor and sensory grossly within normal limits. Five out of 5 muscle strength in all muscle groups. Normal speech. Laboratory Laboratory Tests Test 08/22/16 08/23/16 13:25 07:36 Urine Color LIGHT-YELLOW Urine Turbidity CLEAR Urine pH 6.0 Urine Specific [place] 1.007 Urine Protein NEG Urine Glucose (UA) NEG Urine Ketones NEG Urine Occult Blood NEG Urine Nitrite NEG Urine Bilirubin NEG Urine Urobilinogen LESS THAN 2.0 Urine Leukocyte Esterase NEG Urine RBC LESS THAN 1 Urine WBC LESS THAN 1 Urine Mucus FEW Microscopic Urinalysis Comment CULT NOT INDICATED Urine Opiates Screen NEG Urine Barbiturates Screen NEG Urine Amphetamines Screen NEG Urine Benzodiazepines Screen POS Urine Cocaine Screen NEG Urine Cannabinoids Screen NEG Sodium Level 137 Potassium Level 4.0 Chloride Level 102 Carbon Dioxide Level 25.9 Anion Gap 9 Blood Urea Nitrogen 16 Creatinine 0.97 Estimat Glomerular Filtration 75 Rate Random Glucose 82 Calcium Level 9.4 Triglycerides Level 125 Cholesterol Level 198 LDL Cholesterol 123 HDL Cholesterol 50.0 Cholesterol/HDL Ratio 3.96 Imaging Last Impressions Chest X-Ray 08/22/16 1131 Signed Impressions: Service Date/Time: Monday, August 22, 2016 11:34 - CONCLUSION: No acute disease. Lit August MD FACR Assessment and Plan Assessment and Plan This a 76-year-old male with past medical history which includes BPH status post TURP 2013, reported history of vertebral fracture, chronic back pain anxiety and depression. Patient is currently inpatient psychiatric center for suicide attempt we have been consulted for assistance with management of arthritis pain. Chronic back pain secondary to hx of fracture and arthritis tramadol and acetaminophen as needed for pain Suicide attempt anxiety/depression management per psychiatric team DVT prophylaxis patient is ambulatory low risk Discussed with patient and nursing Patient medically stable at this point will sign off. Patient's condition changes or further assistance is needed please reconsult. Written by [place], acting as scribe for Dr. Amador on 08/23/16 at 13:28. Attending Statement The documentation accurately reflects the work performed [id number] by me on at 13:28. [place] Aug 23, 2016 13:29 Angel Pichardo MD Aug 29, 2016 00:18
[2016-08-23 15:49] LABS: HEMOGLOBIN A1a 1.2 %; HEMOGLOBIN A1b 0.9 %; HEMOGLOBIN Ao 85.9 %; HEMOGLOBIN LA1C 1.8 %; HEMOGLOBIN P3 3.5 %
[2016-08-23] MEDS: ALPRAZolam 0.25 MG TAB PO PRN (20:36)
[2016-08-23] MEDS: traMADol HCL 50 MG TAB PO PRN (20:36)
[2016-08-23] MEDS: ZOLPIDEM TARTRATE 5 MG TAB PO PRN (20:37)
[2016-08-23 21:20] VITALS: BP 155/76; PULSE 79; RESP 18; TEMP 98.4; O2SAT 96
[2016-08-24 05:54] VITALS: BP 100/62; PULSE 88; RESP 16; TEMP 98.2; O2SAT 94
[2016-08-24] MEDS: GABAPENTIN 100 MG CAP PO SCH ×3 (06:00→21:20)
[2016-08-24] MEDS: BUDESONIDE-FORMOTEROL 160/4.5 MCG INHALER INH SCH ×2 (09:00→21:00)
[2016-08-24] MEDS: FLUTICASONE PROPIONATE 50 MCG/ACT 16 GM NASAL SPRAY SCH (09:00)
--- NOTE | 2016-08-24 13:02 | HHI.PYPN ---
Subjective Remarks Patient reports he slept considerably better last night, obtaining 6 hours of uninterrupted sleep. His mood and affect are therefore brighter and less anxious. He continues to complain of chronic pain but this physician notes he was seen by physical medicine and started on tramadol and the sedimentation. Patient will continue on antidepressant therapy. Review of Systems Except as stated in HPI: all other systems reviewed are Neg Objective Alert: Yes [place]: Person (ox4) Mood: Anxious, Calm, Depressed Affect: Restricted, Other (variable) Memory Intact: Comment (not impaired) Hallucinations: Other (denies) Delusions: No Delusion Type: Other Suicidal: Ideation (endorses desire to and no reason for living) Homicidal: Ideation Insight/Judgement Impaired but mildly improved. Vitals/IOs Vital Signs Date Time Temp Pulse Resp B/P Pulse Ox O2 Delivery O2 Flow Rate FiO2 08/24/16 05:54 98.2 88 16 100/62 94 08/22/16 15:45 Room Air 08/22/16 11:37 3 Intake and Output 08/23/16 08/23/16 08/24/16 08:00 16:00 00:00 Intake Total 480 ml Balance 480 ml Assessment & Plan Problem List: (1) Chronic major depressive disorder ICD Code: F32.9 Assessment & Plan Estimated LOS: days will continue sleep and antidepressant medication. Anticipate the patient will be discharged by Monday. Will evaluate his ongoing pain complaints and effectiveness of analgesic medicines. Justification for Cont. Inpt. Continues to be unable to contract for safety. Rafael Munoz MD Aug 24, 2016 13:02
[2016-08-24 18:00] VITALS: BP 144/69; PULSE 69; RESP 16; TEMP 98.3; O2SAT 94
[2016-08-24] MEDS: ZOLPIDEM TARTRATE 5 MG TAB PO PRN (21:20)
[2016-08-24] MEDS: traMADol HCL 50 MG TAB PO PRN (22:02)
[2016-08-24] MEDS: ALPRAZolam 0.25 MG TAB PO PRN (22:02)
[2016-08-25 05:40] VITALS: BP 123/67; PULSE 75; RESP 18; TEMP 98.7; O2SAT 97
[2016-08-25] MEDS: GABAPENTIN 100 MG CAP PO SCH (05:55)
[2016-08-25] MEDS: BUDESONIDE-FORMOTEROL 160/4.5 MCG INHALER INH SCH (09:00)
[2016-08-25] MEDS: FLUTICASONE PROPIONATE 50 MCG/ACT 16 GM NASAL SPRAY SCH (09:00)
[2016-08-25] MEDS ORDERED: DULoxetine HCl DR 20 MG CAP PO SCH (09:00)
--- NOTE | 2016-08-25 10:20 | HHI.DS ---
Psychiatry Discharge Summary Inpatient Psychiatric care?: Yes Advance Directive: No Reason Not Provided: DOESN' HAVE ON Mental Health AdvanceDirective: No Health Care Proxy: No Admission Admission Date Aug 22, 2016 at 16:33 Admission Diagnosis: (1) Major depressive disorder, recurrent severe without psychotic features ICD Code: F33.2 Brief History This is a 76-year-old male who was admitted yesterday after attempting suicide. Apparently he put some type of plastic hose from his tailpipe into the trunk of his car in an effort to kill himself. He was discovered by his girlfriend of 7 years, who called the police. He was Fox acted as a result. Upon interview, the patient reports he was and continues to be suicidal. He ruminates about his inability to sleep. He states he has been treated with Xanax and Ambien for 15 years while residing in [place] and since moving to [place] , he has not received these medicines and has been unable to sleep. As a result of this and not being able to do what he wants, he claims there is no point in living. He also describes chronic back pain and indeed has a history of 4 vertebral fractures. Symptoms of depression include depressed mood, anhedonia, diminished energy, low motivation, profound sleep disturbance, suicidal ideation, social withdrawal and irritability. Tobacco Use In Past 30 Days: No Tobacco Past 30 Days Alcohol Use: Never Hospital Course Patient was involved in individual and group therapies. He was started back on medications which he had become dependent on for many years, including Ambien, benzodiazepines and antidepressant medicine. At this stage, weaning the patient off these medicines is not advisable in this physician's opinion because he becomes suicidally depressed. The risks therefore outweigh the benefits. Only procedures performed were EKGs. Follow up needs to be with a physician familiar with the use of ongoing benzodiazepines and Ambien. Results Blood Pressure 123 / 67 Vital Signs Date Time Temp Pulse Resp B/P Pulse Ox O2 Delivery O2 Flow Rate FiO2 08/25/16 05:40 98.7 75 18 123/67 97 08/22/16 15:45 Room Air 08/22/16 11:37 3 Laboratory Tests Test 08/22/16 08/22/16 08/22/16 08/23/16 11:48 11:54 13:25 07:36 Blood Gas Hemoglobin 11.7 G/DL (12.0-16.0) Red Blood Count 3.65 MIL/MM3 (4.50-5.90) Hemoglobin 11.4 GM/DL (13.0-17.0) Hematocrit 34.3 % (39.0-51.0) Monocytes (%) (Auto) 8.9 % (0.0-8.0) Sodium Level 134 MEQ/L (136-145) Estimat Glomerular Filtration 77 ML/MIN (>89) 75 ML/MIN (>89) Rate Calcium Level 8.4 MG/DL (8.5-10.1) Alkaline Phosphatase 39 U/L (45-117) Troponin I LESS THAN 0.02 NG/ML (0.02-0.05) Total Protein 6.2 GM/DL (6.4-8.2) Salicylates Level LESS THAN 1.7 MG/DL (2.8-20.0) Acetaminophen Level 8.2 MCG/ML (10.0-30.0) Urine Mucus FEW /lpf (OCC) Urine Benzodiazepines Screen POS (NEG) LDL Cholesterol 123 MG/DL (0-99) Laboratory Results Test 08/23/16 07:36 Hemoglobin A1c 5.3 % (4.3-6.0) Triglycerides Level 125 MG/DL (42-150) Cholesterol Level 198 MG/DL (120-200) LDL Cholesterol 123 MG/DL (0-99) HDL Cholesterol 50.0 MG/DL (40.0-60.0) Summary of Procedures None. Imaging Last Impressions Chest X-Ray 08/22/16 1131 Signed Impressions: Service Date/Time: Monday, August 22, 2016 11:34 - CONCLUSION: No acute disease. Lit August MD FACR Pending results at discharge: No Medications # of Antipsychotic meds at D/C: 0 Approp Antipsych med options 1 - Minimum of three failed multiple trials of monotherapy. 2 - Documented plan to taper to monotherapy due to previous use of multiple meds OR cross-taper in progress at D/C. 3 - Documentation of augmentation of Clozapine. 4 - Justification other than those listed in allowable values 1-3, document here : Discharge Discharge Date: Aug 25, 2016 Discharge Diagnosis: (1) Major depressive disorder, recurrent severe without psychotic features ICD Code: F33.2 Mental Status Exam at Disch At the time of discharge the patient's mood was much improved. No suicidal or homicidal ideation. Cognition intact. No psychotic symptoms. Pt Condition on Discharge: Stable Discharge Disposition: Discharge Home Discharge Instructions Diet Instructions: As Tolerated, No Restrictions Activities you can perform: Regular-No Restrictions Discharge Time <= 30 minutes Discharge/Advance Care Plan Health Problems: (1) Chronic major depressive disorder Goals to promote your health * To prevent worsening of your condition and complications * To maintain your health at the optimal level Directions to meet your goals Take your medications as prescribed Follow your dietary instruction Follow activity as directed Keep your appointments as scheduled Take your immunizations and boosters as scheduled If your symptoms worsen call your PCP, if no PCP go to Urgent Care Center or Emergency Room For 16/01 questions related to your inpatient stay or results of tests pending at discharge, please contact Dr. Rafael Munoz at Smoking is Dangerous to Your Health. Avoid second hand smoking Rafael Munoz MD Aug 25, 2016 10:20
[2016-08-25] MEDS ORDERED: DULO20 PO (11:28)
[2016-08-25] MEDS ORDERED: AMBI5TAB PO (11:28)
[2016-08-25] MEDS ORDERED: ALPR.25 PO (11:28)
--- NOTE | 2016-08-29 14:44 | EKG ---
Date Performed: 08/22/2016 Time Performed: 11:40:57 PTAGE: 76 years EKG: SINUS BRADYCARDIA MODERATE INTRAVENTRICULAR CONDUCTION DELAY BORDERLINE ECG Compared to camilo or tracing no significant change PREVIOUS TRACING : 08/05/2013 14.25 DOCTOR: Clement Ritter Interpretating Date/Time 08/29/2016 14:44:14
== END 2016-08-25 14:00 | disposition home or self-care (01) | DRG 885 ==
LOC: NEPC 11:20 → NEDA 16:33 → H260 18:08
PROVIDERS: ADMIT Psychiatry & Neurology Psychiatry; ATTEND Psychiatry & Neurology Psychiatry
DX: F33.2 Major depressive disorder, recurrent severe without psychotic features (principal); G10 Huntington's disease; G47.00 Insomnia, unspecified; G89.29 Other chronic pain; M54.9 Dorsalgia, unspecified; N40.0 Benign prostatic hyperplasia without lower urinary tract symptoms; T50.902A Poisoning by unspecified drugs, medicaments and biological substances, intentional self-harm, initial encounter; T58.01XA Toxic effect of carbon monoxide from motor vehicle exhaust, accidental (unintentional), initial encounter; Y92.008 Other place in unspecified non-institutional (private) residence as the place of occurrence of the external cause; R47.81 Slurred speech; M19.90 Unspecified osteoarthritis, unspecified site; Z87.81 Personal history of (healed) traumatic fracture
CPT/HCPCS: 36600; 71010; 80048; 80053; 80061; 80307; 80320; 80329; 81001; 82550; 82552; 82805; 83036; 83735; 84484; 85025; 85610; 85730; 93005; 96374; G0480; J7030